=== PATIENT | female | born 1985 | race American Indian/Alaskan Native ===

== ENCOUNTER 2018-06-07 22:52 | Outpatient (CLI) | payer MEDICARE ==
[2018-06-07 23:17] VITALS: BP 130/70
[2018-06-07] MEDS ORDERED: LACTATED RINGERS 500 ML IV ONE (23:29)
[2018-06-07] MEDS ORDERED: LACTATED RINGERS 1,000 ML IV ONE (23:30)
[2018-06-07 23:51] LABS: Bacteria,Urine 1+ /HPF (Negative); Bilirubin,Urine NEG (Negative); Blood,Urine NEG (Negative); Color,Urine Yellow (Yellow); Mucus,Urine 2+ /HPF
[2018-06-07 23:57] LABS: Calcium Oxalate Crystals,Urine 1+
== END 2018-06-08 01:40 | disposition home or self-care (01) ==
LOC: TRG 22:52
PROVIDERS: ATTEND Obstetrics & Gynecology
DX: O62.8 Other abnormalities of forces of labor (principal); O99.513 Diseases of the respiratory system complicating pregnancy, third trimester; J45.909 Unspecified asthma, uncomplicated; Z3A.30 30 weeks gestation of pregnancy
CPT/HCPCS: 59025; 81001; 96360; J7120

== ENCOUNTER 2018-12-05 19:17 | Emergency (ER) | payer MEDICARE ==
[2018-12-05 19:33] VITALS: BP 145/71
[2018-12-05] MEDS ORDERED: NACL 0.9% 1000 ML 1,000 ML IV ONE (19:33)
[2018-12-05 20:13] LABS: Basophils # (Auto) 0.1 K/mm3 (0.0-0.1); Basophils % (Auto) 0.6 % (0.0-1.8); Eosinophils # (Auto) 0.3 K/mm3 (0.0-0.4); Eosinophils % (Auto) 2.1 % (0.0-4.3); Hematocrit 38.3 % (30.3-42.9); Hemoglobin 13.2 gm/dl (10.1-14.3); Lymphocytes # (Auto) 2.5 K/mm3 (1.2-5.4); Lymphocytes % (Auto) 21.1 % (13.4-35.0); Mean Corpuscular HGB Conc 35 % (30-34); Mean Corpuscular Volume 86 fl (79-97); Monocytes # (Auto) 0.8 K/mm3 (0.0-0.8); Monocytes % (Auto) 7.1 % (0.0-7.3); Platelet Count 299 K/mm3 (140-440); Red Blood Count 4.44 M/mm3 (3.65-5.03); Red Cell Distribution Width 13.6 % (13.2-15.2)
[2018-12-05 20:34] LABS: Alanine Aminotransferase 13 units/L (7-56); Albumin 4.2 g/dL (3.9-5); BUN/Creatinine Ratio 10; Blood Urea Nitrogen 7 mg/dL (7-17); Calcium 9.3 mg/dL (8.4-10.2); Hemolysis Index 76
--- NOTE | 2018-12-05 23:06 | Ultrasound Report ---
PROCEDURE: US OB <= 14 WEEKS FETUS TECHNIQUE: Real-time transabdominal sonography of the uterus, placenta, amniotic fluid, adnexa, and fetus was performed with image documentation. Measurements were obtained to determine age/size. M-mode Doppler was used to document heartbeat. ADDITIONAL GESTATION: None. HISTORY: abd paid during preg COMPARISONS: None . FINDINGS: Possible early intrauterine gestation. There is a gestational sac measuring 12.9 mm corresponding to a gestational age of 6 weeks 1 day. There is a small yolk sac. At this time no pole or cardiac activity is identified. Follow-up is recommended. Right Ovary: There is a 2.6 cm cyst in the right ovary. . Left Ovary: Normal . Estimated delivery date: . Uterus and adnexa: Normal. IMPRESSION: Possible normal early intrauterine gestation at 6 weeks and 1 day. At this time no pole is iden tified. Follow-up is recommended. This document is electronically signed by Nikolas Whitley MD., December 05 2018 11:04:54 PM [facility]
--- NOTE | 2018-12-05 23:08 | Ultrasound Report ---
PROCEDURE: US OB TRANSVAGINAL TECHNIQUE: Real-time transvaginal sonography of the uterus, placenta, amniotic fluid, adnexa, and fe tus was performed with image documentation. Measurements were obtained to determine age/size. ADDITIONAL GESTATION: None. HISTORY: abd paid during preg COMPARISONS: None . FINDINGS: Possible early intrauterine gestation. There is a gestational sac measuring 12.9 mm corresponding to a gestational age of 6 weeks 1 day. There is a small yolk sac. At this time no pole or cardiac activity is identified. Follow-up is recommended. Right Ovary: There is a 2.6 cm cyst in the right ovary. . Left Ovary: Normal . Estimated delivery date: . Uterus and adnexa: Normal. IMPRESSION: Possible normal early intrauterine gestation at 6 weeks and 1 day. At this time no pole is iden tified. Follow-up is recommended. This document is electronically signed by Nikolas Whitley MD. , December 05 2018 11:06:46 PM ET
--- NOTE | 2018-12-05 23:32 | Emergency Department Report ---
ED Abdominal Pain HPI - General Chief Complaint: Abdominal Pain Stated Complaint: ABD PAIN CRAMPING Time Seen by Provider: 12/05/18 22:33 Source: patient Mode of arrival: Wheelchair Limitations: No Limitations - History of Present Illness Initial Comments: PT is a 33-year-old female who presents for bilateral abdominal cramping bilateral lower quadrant isno bleeding no vaginal discharge patient denies dysuria frequency or urgency no hematuria no vaginal bleeding no fever chills no cough is advised that she believes she 6 weeks she's having abdominal pain 3 days ago . 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 patient is A0 last delivery 5 months ago LMP : 10/10/2018 then exacerbating factors Onset/Timin -: days(s) Location: LLQ, RLQ Radiation: none Migration to: no migration Severity: moderate Severity scale (0 -10): 8 Quality: cramping Consistency: intermittent Improves With: nothing Worsens With: nothing - Related Data LMP Date: 10/10/18 Home Medications Medication Instructions Recorded Confirmed Last Taken Ferrous Sulfate [Iron] 325 mg PO DAILY 06/07/18 08/03/18 08/02/18 10:00 Pnv,Calcium 72/Iron/Folic Acid 1 each PO DAILY 06/07/18 08/03/18 08/02/18 10:00 [ Plus Tablet] Previous Rx's Medication Instructions Recorded Last Taken Type HYDROcodone/APAP 5-325 [[place] 1 each PO Q6HR PRN #30 tablet 08/04/18 Unknown Rx 5-325 mg TAB] Ibuprofen [Motrin 800 MG tab] 800 mg PO Q6H PRN #30 tablet 08/04/18 Unknown Rx Vit-Fe Fumar-FA [ 1 each PO QDAY #30 tablet 08/04/18 Unknown Rx Vitamin] Acetaminophen [Tylenol] 650 mg PO QID PRN #60 capsule 12/06/18 Unknown Rx Allergies Allergy/AdvReac Type Severity Reaction Status Date / Time No Known Allergies Allergy Verified 06/07/18 23:29 ED Review of Systems ROS: Stated complaint: ABD PAIN CRAMPING Other details as noted in HPI Constitutional: denies: chills, fever Eyes: denies: eye pain, eye discharge, vision change ENT: denies: ear pain, throat pain Respiratory: denies: cough, shortness of breath, wheezing Cardiovascular: denies: chest pain, palpitations Endocrine: no symptoms reported Gastrointestinal: abdominal pain (cramping ) Genitourinary: denies: urgency, dysuria, discharge Musculoskeletal: denies: back pain, joint swelling, arthralgia Skin: denies: rash, lesions Neurological: denies: headache, weakness, paresthesias Psychiatric: denies: anxiety, depression Hematological/Lymphatic: denies: easy bleeding, easy bruising ED Past Medical Hx - Past Medical History Previous Medical History?: Yes Hx Hypertension: Yes (PRESENT ) Hx Congestive Heart Failure: No Hx Diabetes: No Hx Deep Vein Thrombosis: No Hx Renal Disease: No Hx Sickle Cell Disease: No Hx Seizures: Yes (USE TO HAVE WHEN SMALL, LAST ONE AGE 13) Hx Asthma: Yes (LAST ATTACK A LITTLE GIRL, NO INHALER USED) Hx COPD: No Hx HIV: No - Surgical History Additional Surgical History: x2 - Social History Smoking Status: Never Smoker Substance Use Type: None - Medications Home Medications: Home Medications Medication Instructions Recorded Confirmed Last Taken Type Ferrous Sulfate [Iron] 325 mg PO DAILY 06/07/18 08/03/18 08/02/18 10:00 History Pnv,Calcium 72/Iron/Folic Acid 1 each PO DAILY 06/07/18 08/03/18 08/02/18 10:00 History [ Plus Tablet] HYDROcodone/APAP 5-325 [[place] 1 each PO Q6HR PRN #30 tablet 08/04/18 Unknown Rx 5-325 mg TAB] Ibuprofen [Motrin 800 MG tab] 800 mg PO Q6H PRN #30 tablet 08/04/18 Unknown Rx Vit-Fe Fumar-FA [ 1 each PO QDAY #30 tablet 08/04/18 Unknown Rx Vitamin] Acetaminophen [Tylenol] 650 mg PO QID PRN #60 capsule 12/06/18 Unknown Rx ED Physical Exam - General Limitations: No Limitations General appearance: alert, in no apparent distress - Head Head exam: Present: atraumatic, normocephalic - Eye Eye exam: Present: normal appearance - ENT ENT exam: Present: mucous membranes moist - Neck Neck exam: Present: normal inspection, full ROM. Absent: tenderness - Respiratory Respiratory exam: Present: normal lung sounds bilaterally. Absent: respiratory distress, wheezes, chest wall tenderness - Cardiovascular Cardiovascular Exam: Present: regular rate, normal rhythm, normal heart sounds. Absent: systolic murmur, diastolic murmur, rubs, gallop - GI/Abdominal GI/Abdominal exam: Present: soft, normal bowel sounds. Absent: distended, tenderness, bruit, hernia - Rectal Rectal exam: Present: deferred - External exam: Present: other (deferrred ) - Extremities Exam Extremities exam: Present: normal inspection, full ROM, normal capillary refill - Back Exam Back exam: Present: normal inspection, full ROM. Absent: tenderness, CVA tenderness (R), CVA tenderness (L), muscle spasm, rash noted - Neurological Exam Neurological exam: Present: alert, oriented X3, CN II-XII intact, normal gait, reflexes normal - Psychiatric Psychiatric exam: Present: normal affect, normal mood - Skin Skin exam: Present: warm, dry, intact, normal color. Absent: rash ED Course Vital Signs 12/05/18 19:30 Temperature 97.9 F Pulse Rate 72 Respiratory 18 Rate Blood Pressure 145/71 O2 Sat by Pulse 96 Oximetry ED Medical Decision Making - Lab Data Result diagrams: 12/05/18 19:50 12/05/18 19:50 Labs 12/05/18 12/05/18 12/05/18 19:50 19:50 19:50 WBC 12.0 H RBC 4.44 Hgb 13.2 Hct 38.3 MCV 86 MCH 30 MCHC 35 H RDW 13.6 Plt Count 299 Lymph % (Auto) 21.1 [place] % (Auto) 7.1 Eos % (Auto) 2.1 Baso % (Auto) 0.6 Lymph # 2.5 [place] # 0.8 Eos # 0.3 Baso # 0.1 Seg Neutrophils % 69.1 Seg Neutrophils # 8.3 H Sodium 137 Potassium 3.9 Chloride 102.6 Carbon Dioxide 21 L Anion Gap 17 BUN 7 Creatinine 0.7 Estimated GFR > 60 BUN/Creatinine Ratio 10 Glucose 76 Calcium 9.3 Total Bilirubin 0.20 AST 16 ALT 13 Alkaline Phosphatase 79 Total Protein 7.4 Albumin 4.2 Albumin/Globulin Ratio 1.3 HCG, Quant 9990 H Urine Color Urine Turbidity Urine pH Ur Specific [place] Urine Protein Urine Glucose (UA) Urine Ketones Urine Blood Urine Nitrite Urine Bilirubin Urine Urobilinogen Ur Leukocyte Esterase Urine WBC (Auto) Urine RBC (Auto) U Epithel Cells (Auto) 12/05/18 23:17 WBC RBC Hgb Hct MCV MCH MCHC RDW Plt Count Lymph % (Auto) [place] % (Auto) Eos % (Auto) Baso % (Auto) Lymph # [place] # Eos # Baso # Seg Neutrophils % Seg Neutrophils # Sodium Potassium Chloride Carbon Dioxide Anion Gap BUN Creatinine Estimated GFR BUN/Creatinine Ratio Glucose Calcium Total Bilirubin AST ALT Alkaline Phosphatase Total Protein Albumin Albumin/Globulin Ratio HCG, Quant Urine Color Yellow Urine Turbidity Clear Urine pH 7.0 Ur Specific [place] 1.021 Urine Protein <15 mg/dl Urine Glucose (UA) Neg Urine Ketones Neg Urine Blood Sm Urine Nitrite Neg Urine Bilirubin Neg Urine Urobilinogen 2.0 Ur Leukocyte Esterase Neg Urine WBC (Auto) 1.0 Urine RBC (Auto) 4.0 U Epithel Cells (Auto) 1.0 - Radiology Data Radiology results: report reviewed, image reviewed rdering Physician: BRIANNE KENNEDY DO Date of Service: 12/05/18 Procedure(s): US OB transvaginal Accession Number(s): [id number] cc: BRIANNE KENNEDY DO PROCEDURE: US OB TRANSVAGINAL TECHNIQUE: Real-time transvaginal sonography of the uterus, placenta, amniotic fluid, adnexa, and fetus was performed with image documentation. Measurements were obtained to determine age/size. ADDITIONAL GESTATION: None. HISTORY: abd paid during preg COMPARISONS: None . FINDINGS: Possible early intrauterine gestation. There is a gestational sac measuring 12.9 mm corresponding to a gestational age of 6 weeks 1 day. There is a small yolk sac. At this time no pole or cardiac activity is identified. Follow-up is recommended. Right Ovary: There is a 2.6 cm cyst in the right ovary. . Left Ovary: Normal . Estimated delivery date: . Uterus and adnexa: Normal. IMPRESSION: Possible normal early intrauterine gestation at 6 weeks and 1 day. At this time no pole is identified. Follow-up is recommended. This document is electronically signed by Nikolas Whitley MD. 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 Critical care attestation.: If time is entered above; I have spent that time in minutes in the direct care of this critically ill patient, excluding procedure time. ED Disposition Clinical Impression: Abdominal pain during in first trimester Disposition: TO HOME OR SELFCARE Is pt being admited?: No Does the pt Need Aspirin: No Condition: Stable Instructions: Abdominal Pain (ED), Abdominal Pain in (ED) Additional Instructions: [place] Early 6 weeks and 1 days, you will need follow up with your COMPUTATIONAL SCIENTIST for follow up labs and possible repeat Ultra Sound. Prescriptions: Acetaminophen [Tylenol] 650 mg PO QID PRN #60 capsule PRN Reason: pain Referrals: TRAVIS DONALDSON [Primary Care Provider] - 3-5 Days [facility] [Provider [facility]] - 3-5 Days Forms: Work/School Release Form(ED) Time of Disposition: :
[2018-12-06 00:03] LABS: Bilirubin,Urine NEG (Negative); Blood,Urine SM (Negative); Color,Urine Yellow (Yellow); Protein,Urine <15 mg/dL mg/dL (Negative)
== END 2018-12-06 01:05 | disposition home or self-care (01) ==
LOC: ED 19:17
DX: O34.81 Maternal care for other abnormalities of pelvic organs, first trimester (principal); N83.201 Unspecified ovarian cyst, right side; O16.1 Unspecified maternal hypertension, first trimester; O99.511 Diseases of the respiratory system complicating pregnancy, first trimester; J45.909 Unspecified asthma, uncomplicated; Z3A.01 Less than 8 weeks gestation of pregnancy
CPT/HCPCS: 36415; 76801; 76817; 80053; 81001; 84702; 85025; 99284